=== PATIENT | male | born 1980 | race Caucasian/White ===

== ENCOUNTER 2019-09-27 06:10 | Outpatient (CLI) | payer BC ==
[~2019-09-27] VITALS: Ht 177.8 cm; Wt 104.5 kg
[~2019-09-27 06:10] MED LIST: IBUP800T26 PO; PANT40TA2 PO; RANI150C11 PO; RANI300T4 PO; TOPI25TA2 PO
[2019-09-27] MEDS ORDERED: cholesterol PO (11:14)
[2019-09-27] MEDS ORDERED: LISI10TA2 PO (11:14)
== END 2019-09-27 11:15 | disposition home or self-care (01) ==
LOC: PREOP 06:10
PROVIDERS: ATTEND Surgery
DX: Z01.818 Encounter for other preprocedural examination (principal)

== ENCOUNTER 2019-09-30 08:45 | Day surgery (SDC) | payer BC ==
--- NOTE | 2019-09-28 10:39 | HISTORY AND PHYSICAL ---
DATE OF SERVICE: PROCEDURE DATE: 09/30/2019. ATTENDING PHYSICIAN: Dr. Brown. HISTORY OF PRESENT ILLNESS: The patient is a 39-year-old male who was referred over to us for pain and bulging in the left inguinal region. The patient reports this has been there for approximately the last 8 months; however, this has become larger in size and has noticed more discomfort. He reports that usually with activities such as lifting or exertion, he does notice bulging in the inguinal region down into the scrotum. He also does report episodes of testicular pain as well as a fullness in the scrotum. He was seen by his primary care physician where he reports he was found to have a left inguinal hernia. PAST MEDICAL HISTORY: Hypertension. PAST SURGICAL HISTORY: Tonsillectomy as a child, right toe surgery at age 12. ALLERGIES: OMEPRAZOLE, DARVOCET. MEDICATIONS: Lisinopril. SOCIAL HISTORY: Positive for smoke 1 pack per day for 25 years. Social for alcohol. FAMILY HISTORY: Mother, hypertension. Father, lung cancer at 64 years of age, hypertension. Maternal grandmother, breast cancer. Maternal grandfather, colon cancer. VITAL SIGNS: Blood pressure is 143/107. Current weight is 231.9 at 5 feet 10 inches. REVIEW OF SYSTEMS: Well-nourished male in no acute distress. He is not experiencing any shortness of breath or difficulty breathing. No chest pain, palpitations or diaphoresis. No nausea or vomiting. He does report pain in the left inguinal region. No diarrhea or constipation. No red blood per rectum. No dark tarry stools. No fever or chills. No recent inadvertent weight loss. All other review of systems is negative. PHYSICAL EXAMINATION: CHEST: Clear. Good breath sounds bilaterally. HEART: Regular, no murmurs. EXTREMITIES: No lower extremity edema. Negative Homans sign. HEENT: No scleral icterus. NECK: No cervical lymphadenopathy. ABDOMEN: Soft, nondistended. With the patient performing Valsalva maneuver, there is a left inguinal hernia identified that is painful to palpation. There is no right inguinal hernia component identified. SKIN: Warm, dry and pink. NEUROLOGIC: Awake, alert and oriented x3. ASSESSMENT AND PLAN: A 39-year-old male with a symptomatic left inguinal hernia. At this time, the risks and benefits of the procedure as well as the procedure and home care instructions including the risk of incarceration and strangulation were explained to the patient. The patient verbalized understanding of instructions and agrees to proceed as planned. At this time, we will proceed with scheduling the patient for a laparoscopic left inguinal hernia repair with mesh. Job ID: [id number] DocumentID: [id number] Dictated Date: 09/23/2019 15:26:07 Warp Picker Date: 09/23/2019 15:48:11 Dictated By: GWENDOLYN MAE APRN
[~2019-09-30] VITALS: Ht 177.8 cm; Wt 104.5 kg
[2019-09-30] VITALS (10 sets, daily range): BP systolic 126–146; BP diastolic 72–98
[~2019-09-30 08:45] MED LIST changes: +LISI10TA2 PO; +cholesterol PO
--- NOTE | 2019-09-30 09:05 | Progress Note-Pre Operative ---
Pre-Operative Progress Note H&P Reviewed The H&P was reviewed, patient examined and no changes noted. Date Seen by Provider: Sep 30, 2019 Time Seen by Provider: 09:00 Date H&P Reviewed: Sep 30, 2019 Time H&P Reviewed: 08:55 Pre-Operative Diagnosis: Symptomatic left inguinal hernia GWENDOLYN MAE APRN Sep 30, 2019 09:05
[2019-09-30] MEDS ORDERED: HYDR-4227 PO (09:08)
--- NOTE | 2019-09-30 09:08 | Discharge Inst-Surgical ---
D/C Lap Instructions-KIDO Reconcile Patient Problems Problems Reviewed?: Yes New, Converted, or Re-Newed RX: RX on Chart Follow Up Appt in 2 weeks Activity as tolerated No driving for 24 hours No driving while on pain medications Incentive Spirometry use every 2 hours while awake Regular Diet Symptoms to Report: Fever over 101 degree F, Nausea/Vomiting Infection Signs and Symptoms to report: Increased redness, Foul odor of wound, Increased drainage Bathing instructions: May shower Operative Area Clean/Dry; Keep incision clean/dry If any problems/questions: Contact your physician or go to Emergency Room GWENDOLYN MAE APRN Sep 30, 2019 09:08
[2019-09-30] MEDS ORDERED: morphine INJ 10 MG/ML 1ML (SYR OR VIAL) IVP PRN (09:15)
[2019-09-30] MEDS ORDERED: ONDANSETRON 4 MG/2 ML (SDV) Z0FRAN IVP PRN ×2 (09:15→12:00)
[2019-09-30] MEDS ORDERED: HYDROcodone/APAP 5 MG/325 MG (LORTAB) TAB PO ONE (09:15)
[2019-09-30] MEDS ORDERED: ACETAMINOPHEN 325 MG TABLET PO PRN (09:15)
[2019-09-30] MEDS ORDERED: ceFAZolin 2 GM IV Premixed 50 ML IV ONE (09:15)
[2019-09-30] MEDS: LACTATED RINGERS 1,000 ML IV PRN ×2 (09:23→11:08)
[2019-09-30 09:32] LABS: BASOPHILS % (AUTO) 0 % (0-10); EOSINOPHILS # (AUTO) 0.5 10^3/uL (0.0-0.3); EOSINOPHILS % (AUTO) 4 % (0-10); HEMATOCRIT 42 % (40-54); HEMOGLOBIN 14.2 G/DL (13.3-17.7); LYMPHOCYTES # (AUTO) 2.4 X 10^3 (1.0-4.0); LYMPHOCYTES % (AUTO) 19 % (12-44); MEAN CORPUSCULAR HEMOGLOBIN 32 PG (25-34); MEAN CORPUSCULAR HGB CONC 34 G/DL (32-36); MEAN CORPUSCULAR VOLUME 93 FL (80-99); MEAN PLATELET VOLUME 10.8 FL (7.4-10.4); MONOCYTES # (AUTO) 0.6 X 10^3 (0.0-1.0); MONOCYTES % (AUTO) 5 % (0-12); NEUTROPHILS # (AUTO) 9.2 X 10^3 (1.8-7.8); NEUTROPHILS % (AUTO) 72 % (42-75); PLATELET COUNT 231 10^3/uL (130-400); RED CELL DISTRIBUTION WIDTH 13.4 % (10.0-14.5); WHITE BLOOD COUNT 12.7 10^3/uL (4.3-11.0)
[2019-09-30] MEDS ORDERED: BUP/EPI 0.5% 1:200,000 (SENSORCAINE) 30 ML VIAL ONE (09:32)
[2019-09-30] MEDS ORDERED: NEOSTIGMINE 3 MG/3 ML VIAL ONE (09:44)
[2019-09-30] MEDS ORDERED: DEXAMETHASONE 10 MG/ML (DECADRON) 1 ML VIAL ONE (09:44)
[2019-09-30] MEDS ORDERED: MIDAZOLAM 2 MG/2 ML (VERSED) VIAL ONE (09:44)
[2019-09-30] MEDS ORDERED: ONDANSETRON 4 MG/2 ML (SDV) Z0FRAN ONE (09:44)
[2019-09-30] MEDS ORDERED: SEVOFLURANE (ULTANE) 15 ML INHAL SOLN ONE ×3 (09:44→11:50)
[2019-09-30] MEDS ORDERED: ROCURONIUM 10 MG/ML 5 ML SYRINGE IV ONE (09:44)
[2019-09-30] MEDS ORDERED: proPOfol 200 MG/20 ML (DIPRIVAN) VIAL IV ONE (09:44)
[2019-09-30] MEDS ORDERED: LIDOCAINE PF 2% 5 ML (XYLOCAINE) VIAL ONE (09:44)
[2019-09-30] MEDS ORDERED: fentaNYL INJECTION 100 MCG/2 ML AMP ONE ×2 (09:44→11:03)
[2019-09-30] MEDS ORDERED: GLYCOPYRROLATE 0.2 MG/ML (ROBINUL) 2 ML VIAL ONE (09:44)
[2019-09-30] MEDS ORDERED: KETOROLAC 30 MG/ML VIAL ONE (11:28)
--- NOTE | 2019-09-30 11:43 | Progress Note-Post Operative ---
Post-Operative Progess Note Surgeon (s)/Pre Planning Advisor (s) Surgeon BAILEE GONZALEZ MD Pre Planning Advisor: douglas mckinney ELECTRONICS ENGINEERING TECHNOLOGIST Pre-Operative Diagnosis Symptomatic left inguinal hernia Post-Operative Diagnosis incarcerated left indirect ing hernia Procedure & Operative Findings Date of Procedure 09/30/19 Procedure Performed/Findings laparoscopic left incarcerated ing hernia repair with mesh. Anesthesia Type get Estimated Blood Loss Estimated blood loss (mL): minimal Specimens/Packing Specimens Removed none BAILEE GONZALEZ MD Sep 30, 2019 11:42
[2019-09-30] MEDS ORDERED: morphine INJ 10 MG/ML 1ML (SYR OR VIAL) IVP ONE (12:00)
[2019-09-30] MEDS ORDERED: HYDROmorphone 2 MG/ML VIAL (DILAUDID) IV ONE (12:00)
[2019-09-30] MEDS ORDERED: MEPERIDINE (DEMEROL) INJ 50 MG/ML IVP ONE (12:00)
[2019-09-30] MEDS ORDERED: PROMETHAZINE INJ 25 MG/ML (PHENERGAN) AMP IVP ONE (12:00)
--- NOTE | 2019-09-30 13:54 | Anesthesia-General Post-Op ---
General Patient Condition Mental Status/LOC: Same as Preop Cardiovascular: Satisfactory Nausea/Vomiting: Absent Respiratory: Satisfactory Pain: Controlled Complications: Absent Post Op Complications Complications None Follow Up Care/Instructions Patient Instructions None needed. Anesthesia/Patient Condition Patient Condition Patient is doing well, no complaints, stable vital signs, no apparent adverse anesthesia problems. No complications reported per nursing. DOMINIK CAMPOS CRNA Sep 30, 2019 13:54
--- NOTE | 2019-09-30 14:41 | OPERATIVE REPORT ---
DATE OF SERVICE: 09/30/2019 ATTENDING PRIMARY CARE PHYSICIAN: Nat Brown MD PREOPERATIVE DIAGNOSIS: Symptomatic nonreducible left inguinal hernia. POSTOPERATIVE DIAGNOSIS: Symptomatic nonreducible left indirect inguinal hernia. SURGEON: Bailee Gonzalez MD MUSHROOM FARMER: Lorenzo Zarate APRN. ANESTHESIA: General endotracheal. ESTIMATED BLOOD LOSS: Minimal. FINDINGS: Incarcerated left indirect inguinal hernia with omentum within the hernia sac. No right inguinal hernia component. DISPOSITION: The patient tolerated the procedure well. INDICATIONS: The patient is a 39-year-old male who has had approximately 1 year history of pain and a palpable bulge in the left inguinal region. He reports that this has grown larger in size and encroached on the scrotum. He was seen by his physician and referred over to us where he was evaluated and found to have a left inguinal hernia, which was nonreducible and tender. He is otherwise doing well and tolerating a regular diet and having normal bowel movements. DESCRIPTION OF PROCEDURE: The patient was brought to the operating room and supine on the table. After adequate IV pain and sedative medications and general endotracheal intubation, the abdomen was prepped and draped in standard surgical fashion. A 0.5% Marcaine with epinephrine was then used to anesthetize overlying skin in the infraumbilical rim and a crescent shaped skin incision made using a 15 blade. A towel clamp was applied to the skin and the abdominal wall retracted anteriorly and a Veress needle inserted. With the low opening pressure of 0 mmHg and the abdomen was then insufflated to 15 mmHg pressure. The Veress needle removed and a 10 mm XL trocar placed followed by a 10 mm 45-degree angle laparoscope visualizing the peritoneal cavity. A 4-quadrant abdominal exploration was performed. There was a left indirect inguinal hernia, which was incarcerated with omentum. There was no right inguinal hernia component identified. Under direct visualization, we then proceeded to place a bilateral 5 mm ports after the skin and peritoneal lining were anesthetized using 0.5% Marcaine with epinephrine and a transverse skin incision made using a 15 blade. The patient was then placed in Trendelenburg position. The peritoneal lining was then opened starting laterally towards the conjoint tendon and the inguinal ligament using the Sonicision. We then proceeded medially identifying Master's ligament. We then proceeded with inferior dissection encompassing the entire hernia sac as well identifying the cord and its surrounding contents and sparing these structures. Good hemostasis was observed. A medium size 3DMax polypropylene mesh was then placed through the 10 mm port site and placed into the defect and tacked to Master's ligament medially and to the conjoined tendon laterally using absorbable tacks. The peritoneal lining was then placed over the mesh and a few absorbable tacks placed to keep this in place with visualization of good hemostasis. The 10 mm port site fascia and peritoneum were then closed under direct visualization using Bhargav-Fátima device and 0 Vicryl suture. The abdomen was desufflated and remaining ports removed. All skin incisions were closed using 4-0 Monocryl running subcuticular sutures. Wounds were then cleaned and covered with Dermabond. The patient tolerated the procedure well. We will start IV normal pain medication as well as a clear liquid diet. Once he is tolerating clears, has good pain control with oral pain medications, ambulating well, we will discharge him home. He will be instructed to do no heavy lifting or exertion for the next to 2 to 6 weeks and to apply inguinal and scrotal support at all times to prevent seroma or hematoma formation. Job ID: [id number] DocumentID: [id number] Dictated Date: 09/30/2019 11:43:18 Typewriter Ribbon Winder Date: 09/30/2019 14:40:50 Dictated By: BAILEE GONZALEZ MD
== END 2019-09-30 13:45 | disposition home or self-care (01) ==
LOC: SDC 08:45
PROVIDERS: ATTEND Surgery
DX: K40.30 Unilateral inguinal hernia, with obstruction, without gangrene, not specified as recurrent (principal); I10 Essential (primary) hypertension; E78.5 Hyperlipidemia, unspecified; K21.9 Gastro-esophageal reflux disease without esophagitis; F17.210 Nicotine dependence, cigarettes, uncomplicated; Z90.89 Acquired absence of other organs; Z88.8 Allergy status to other drugs, medicaments and biological substances; Z88.6 Allergy status to analgesic agent; Z79.899 Other long term (current) drug therapy; Z80.1 Family history of malignant neoplasm of trachea, bronchus and lung; Z80.3 Family history of malignant neoplasm of breast; Z80.0 Family history of malignant neoplasm of digestive organs
CPT/HCPCS: 36415; 85025; 87081; 94664